=== PATIENT | female | born 2000 | race Caucasian/White ===

== ENCOUNTER 2023-02-07 11:50 | Emergency (ER) | payer OTHER ==
[~2023-02-07] VITALS: Ht 157.5 cm; Wt 45.5 kg
[2023-02-07] MEDS ORDERED: ondansetron/PF 4mg/2ml inj IV ONE (13:55)
[2023-02-07] MEDS ORDERED: ringers solution, lacted 1,000 ML IV ONE (13:55)
[2023-02-07] MEDS ORDERED: ketorolac trometh. 30mg/ml inj. IV ONE (14:05)
--- NOTE | 2023-02-07 14:30 | NUR ---
[facility] NOTIFIED OF IV MEDICATIONS NEEDED
[2023-02-07 14:36] LABS: BASOPHILS # (AUTO) 0.1 X10'3 (0-0.2); BASOPHILS % (AUTO) 0.5 % (0-1); EOSINOPHILS % (AUTO) 0.3 % (0-6); HEMATOCRIT 40.4 % (35.0-45.0); HEMOGLOBIN 13.6 g/dl (12.0-16.0); LYMPHOCYTES # (AUTO) 0.2 X10'3 (1.1-4.8); MEAN CORPUSCULAR HEMOGLOBIN 30.1 PG (27.0-31.0); MEAN CORPUSCULAR HGB CONC 33.8 g/dL (33.0-36.5); MEAN CORPUSCULAR VOLUME 89.2 FL (78-98); MEAN PLATELET VOLUME 7.2 FL (7.4-10.4); MONOCYTES # (AUTO) 1.2 X10'3 (0-0.9); MONOCYTES % (AUTO) 10.6 % (2-12); NEUTROPHILS # (AUTO) 9.6 X10'3 (1.8-7.7); NEUTROPHILS % (AUTO) 86.6 % (42-75); PLATELET COUNT 257 X10'3 (140-440); RED BLOOD COUNT 4.53 X10'6 (4.20-5.60); RED CELL DISTRIBUTION WIDTH 13.6 % (11.5-14.5); WHITE BLOOD COUNT 11.1 X10'3 (4.5-11.0)
[2023-02-07 14:41] LABS: ALANINE AMINOTRANSFERASE 19 U/L (12-78); ALBUMIN 3.9 G/DL (3.4-5.0); ALBUMIN/GLOBULIN RATIO 1.1 (1.1-1.5); ALKALINE PHOSPHATASE 78 IU/L (20-180); ANION GAP 8 (8-16); ASPARTATE AMINO TRANSFERASE 17 U/L (10-37); BILIRUBIN,TOTAL 0.6 MG/DL (0.1-1.0); BLOOD UREA NITROGEN 6 MG/DL (7-18); BUN/CREATININE RATIO 8.5 (10.0-20.0); CHLORIDE 102 MMOL/L (99-107); CREATININE 0.71 MG/DL (0.40-0.90); GLUCOSE 98 MG/DL (70-104); POTASSIUM 3.8 MMOL/L (3.5-5.1); SODIUM 138 MMOL/L (135-145); TOTAL CARBON DIOXIDE 28.3 MMOL/L (24-32); TOTAL PROTEIN 7.4 G/DL (6.4-8.2); eCRCL 91 ML/MIN; eGFR > 90 ML/MIN
[2023-02-07] MEDS ORDERED: dexamethasone inj 6 MG in dextrose 5%-water 100 ML IV STA (15:32)
[2023-02-07 15:39] VITALS: BP 93/58; PULSE 95; TEMP 99; O2SAT 97
[2023-02-07] MEDS ORDERED: AZIT250T PO (15:43)
[2023-02-07] MEDS ORDERED: NAPR-996 PO (15:43)
[2023-02-07] MEDS ORDERED: HYDROcodone/acetaminophen 5mg/325mg tablet PO ONE (15:45)
[2023-02-07] MEDS ORDERED: dexamethasone inj 6 MG in normal saline 50ml IV soln 50 ML IV STA (15:51)
[2023-02-07 15:58] VITALS: RESP 16
== END 2023-02-07 17:01 | disposition home or self-care (01) ==
LOC: ER 11:50
DX: U07.1 COVID-19 (principal); S39.012A Strain of muscle, fascia and tendon of lower back, initial encounter; R11.2 Nausea with vomiting, unspecified; R50.9 Fever, unspecified; X58.XXXA Exposure to other specified factors, initial encounter; Y93.89 Activity, other specified; Y92.89 Other specified places as the place of occurrence of the external cause; Y99.8 Other external cause status
CPT/HCPCS: 36415; 80053; 85025; 87811; 96361; 96365; 96375; 99284; J1100; J1885; J2405; J3490; J7120